=== PATIENT | female | born 1955 | race Caucasian/White ===

== ENCOUNTER 2023-09-11 17:42 | Emergency (ER) | payer OTHER, SELFPAY ==
[2023-09-11 17:44] VITALS: BP 150/91
[2023-09-11 18:13] VITALS: BP 117/74
[2023-09-11 18:23] LABS: % Basophils 0.3 % (0-2); % Eosinophils 1.7 % (0-6); % Immature Granulocytes 0.9 % (0-0.5); % Monocytes 7.8 % (1.7-9.3); % Neutrophils 63.3 % (42.2-75.2); Absolute Eosinophils 0.2 10^3/uL (0-0.7); Absolute Immature Granulocytes 0.1 10^3/uL (0-0.05); Absolute Lymphocytes 3.5 10^3/uL (1.2-3.4); Absolute Neutrophils 8.5 10^3/uL (1.4-6.5); Hemoglobin 12.2 g/dL (12.0-16.0); Mean Corp Hgb Conc. 33.9 g/dL (33.0-37.0); Mean Corpuscular Hgb 29.3 pg (27.0-31.0); Mean Corpuscular Volume 86.3 fL (81.0-99.0); Mean Platelet Volume 9.1 fL (7.4-10.4); Nucleated Red Blood Cells % 0 %; Platelet Count 315 10^3/uL (130-400); Red Blood Cell Count 4.17 10^6/uL (4.20-5.40); Red Cell Dist. Width 15.1 % (11.5-14.5); White Blood Cell Count 13.4 10^3/uL (4.8-10.8)
[2023-09-11 18:26] VITALS: BMI 36.6
--- NOTE | 2023-09-11 18:44 | ED.GENMED ---
History of Present Illness
General
Chief Complaint: Dehydration Symptoms
Source: patient
Exam Limitations: none
Time Seen by Provider: 09/11/23 18:16
History of Present Illness
History of Present Illness:
This is a 68 year old female that comes in with c/o dehydration. States that she is feeling dehydrated. State that she has been having issues for the pat 5 years and has been tested and seeing different doctors for some time. State that she has an
appointment with the GI specialist next week. State that she has had abd pain and that she has trouble drinking as this makes her nauseated. States that she is also not eating much. States that she has breathing problems and just finished steroids
today. States that she gets chest tightness, SOB, feels cold, has a headache and feels whoozy. States that all of this has been going on for 5 years and she right know is only here for Dehydration. Denies any fever, chest pain now, vomiting,
diarrhea, urinary burning.
Past History
Past History
ED Past Medical History: HTN, Hypercholesterolemia and Other (Colitis, ' breathing Issues', C-diff)
ED Past Surgical History: Appendectomy, Gynecological (D&C, ) and Urological (Bladder sling)
Social History
Tobacco: Former smoker
Alcohol: None
Personal:
Living: with family
Review of Systems
Review of Systems
All Other Systems: ROS reviewed and negative except as documented in HPI and ROS
Constitutional: Reports no symptoms; Denies fever or chills
Respiratory: Reports trouble breathing; Denies cough
Cardiac: Reports chest pain (occasionally gets chest tightness)
ABD/GI: Reports abdominal pain and nausea; Denies vomiting or diarrhea
: Reports no symptoms; Denies dysuria, frequency or urgency
Musculoskeletal: Reports no symptoms
Skin: Reports no symptoms
Neurological: Reports headache and other (Feels 'whoozy')
Psychiatric: Reports no symptoms
Phy Exam
General Physical Exam
General Presentation: no apparent distress
General age: appears stated age
General Skin: warm and dry
General Habitus: normal
General Mental: alert
General Hydration: dry mucous membranes
ENT Exam
ENT Exam: TM's normal, pharynx normal and neck supple
Eye Exam
Eye Exam: EOMI
Cardiovascular Exam
Cardiovascular Exam: regular rate/rhythm, no edema, no murmur and normal peripheral pulses
Pulmonary Exam
Pulmonary Exam: lungs clear, no respiratory distress, no rales, chest non tender, no crackles, no rhonchi, no wheezing and no cough
Gastrointestinal Exam
Gastrointestinal Exam: normal bowel sounds, non tender, soft, no organomegaly, no pulsatile mass and non distended
Musculoskeletal Exam
Musculoskeletal Exam: full ROM and no edema
Skin Exam
Skin Exam: normal color, warm/dry, no rash and no petechia
Psychiatric Exam
Psychiatric Exam: normal mood/affect
Course
Orders/Labs/Results
Orders:
Orders
09/11/23 18:18
Complete Blood Count/With Diff Urgent
Comprehensive Metabolic Panel Urgent
09/11/23 18:44
0.9% Sodium Chloride 1000 ml [Nss] 1,000 ml IV BOLUS
09/11/23 19:22
Urinalysis Urgent
Date Specimen was Collected: 09/11/23
Time Specimen was Collected: 19:21
Urine Microscopic Urgent
Date Specimen was Collected: 09/11/23
Time Specimen was Collected: 19:21
09/11/23 20:30
Ketorolac [Toradol] 30 mg .ROUTE .STK-MED ONE
Ondansetron Injectable [Zofran] 4 mg .ROUTE .STK-MED ONE
09/11/23 20:34
Ondansetron Injectable [Zofran] 4 mg IV NOW STA
09/11/23 20:35
Ketorolac [Toradol] 30 mg IV NOW STA
Abnormal Lab Results
09/11/23 09/11/23
18:18 19:22
WBC 13.4 H 10^3/uL
(4.8-10.8)
RBC 4.17 L 10^6/uL
(4.20-5.40)
Hct 36.0 L %
(37.0-47.0)
RDW 15.1 H %
(11.5-14.5)
Abs Immat Gran (auto) 0.1 H 10^3/uL
(0-0.05)
Absolute Neuts (auto) 8.5 H 10^3/uL
(1.4-6.5)
Absolute Lymphs (auto) 3.5 H 10^3/uL
(1.2-3.4)
Absolute Monos (auto) 1.0 H 10^3/uL
(0.1-0.6)
Immature Gran % 0.9 H %
(0-0.5)
BUN 24 H mg/dl
(7-17)
Alkaline Phosphatase 137 H U/L
(38-126)
Urine Nitrite Positive A
(Negative)
Ur Leukocyte Esterase 2+ A
(Negative)
Urine WBC 16-20 A /HPF
(0-5)
Urine Bacteria Moderate A
(Negative)
09/11/23 18:18
09/11/23 18:18
Leukocytosis (just finished steroid today), Dehydration. Alk phos elevation. Urine questionable for infection.
Vital Signs
Initial and Last Documented VS:
Initial Vital Signs
Temp Pulse Resp BP Pulse Ox
97.8 F 74 18 150/91 97
09/11/23 17:44 09/11/23 17:44 09/11/23 17:44 09/11/23 17:44 09/11/23 17:44
Last Documented Vital Signs
Temp Pulse Resp BP Pulse Ox
97.6 F 77 22 110/55 94
09/11/23 18:27 09/11/23 19:30 09/11/23 19:30 09/11/23 19:22 09/11/23 19:30
MDM/Problems Addressed
Differential Diagnosis Includes:
Dehydration, Nausea
MDM/Problems Addressed:
This is a 68 year old female that comes in with c/o feeling that she is dehydrated. States that this is the only reason she is here today as all of her other symptoms have been going on for the past 5 years. States that she see's all kind of doctors
and is seeing the GI specialist at [place] next week.
Will check patient labs and give IV fluids.
Back into see patient. Explained that her blood work shows dehydration and her urine is questionable for infection. However since patient states that she has urinary burning will start on antibiotic. Will discharge patient home.
Chronic conditions affecting care:
Chronic nausea.
Acute Exacerbation and/or Progression of Chronic Illness:
Nausea,
*Pulse Oximetry
Patient hypoxic: no
*EKG
Interpreted by ED Provider?: NA
Rate: EKG- N/A
*Critical Care Note
Total Time (30-74mins, 75-104mins- exclusive of procedures): Not Applicable
ED Attending Note
-
Portions of this chart may have been created with voice recognition software.� Occasional wrong word or��sound alike� substitutions may have occurred due to the inherent limitations of voice recognition software.
Discharge Plan
Departure
Patient Disposition: Home (Routine Discharge)
Date of Disposition: 09/11/23
Time of Disposition: 21:20
Patient with high blood pressure during this ER visit?: No
Condition: Good
Covid-19: Not Applicable
Discharge Problem:
Acute dehydration, Urinary tract infection
Instructions: Dehydration, Adult (DC), Urinary Tract Infection, Adult ED
Prescriptions:
New
cephalexin 500 mg capsule
500 mg PO BID 7 Days Qty: 13 0RF
Referrals:
Janet Moreno, DO [Family Provider] - Call in 1-3 days for appt
Activity Restrictions/Additional Instructions:
As discussed, your blood work shows that you are dehydrated. Please increase your water intake to 8-8oz glasses daily. Your urine is also questionable for infection. Since you have had urinary burning you have been started on an antibiotic and given
your first dose here. Your Prescription has been sent to the Pharmacy. Please follow up with the family doctor and keep your GI appointment next week as scheduled. IF YOU HAVE ANY OTHER CONCERNS PLEASE RETURN TO THE EMERGENCY ROOM.
Interventions
Interventions:
*Risk Screen - Suicide Last Done: 09/11/23 17:44
*General Assessment Last Done: 09/11/23 17:44
*Neglect/Abuse Screening Last Done: 09/11/23 17:44
ED- Fall Risk Assessment Last Done: 09/11/23 18:27
TF-Nokkyi-Vaeozyqfxo Assessment Last Done: 09/11/23 18:28
ED- Cardiac Assessment Last Done: 09/11/23 18:27
ED- Pulmonary Assessment Last Done: 09/11/23 18:27
Discharge Date and Time
Print Language: GREEK
[2023-09-11 18:50] LABS: ALT (SGPT) 29 U/L (0-35); AST (SGOT) 25 U/L (14-36); Albumin 4.2 g/dl (3.5-5.0); Alkaline Phosphatase 137 U/L (38-126); Blood Urea Nitrogen 24 mg/dl (7-17); Calcium 9.6 mg/dl (8.4-10.2); Carbon Dioxide 27 mmol/L (22-30); Chloride 103 mmol/L (98-107); Estimated Creatinine Clearance 85 ml/min; Glucose 87 mg/dl (70-99); Sodium 138 mmol/L (135-145); Total Bilirubin 0.5 mg/dl (0.2-1.3); Total Protein 6.9 g/dl (6.3-8.2); eGFR > 60.00
[2023-09-11] MEDS: NSS 1000 IV (19:13)
[2023-09-11 19:22] VITALS: BP 110/55
[2023-09-11 19:34] LABS: Urine Albumin Negative (Neg - Trace); Urine Bilirubin Negative (Negative); Urine Character Clear (Clear); Urine Color Yellow; Urine Glucose Negative (Negative); Urine Ketone Negative (Negative); Urine Leukocyte 2+ (Negative); Urine Nitrite Positive (Negative); Urine Occult Blood Negative (Negative); Urine Urobilinogen Negative (Neg - 1+)
[2023-09-11 19:42] LABS: Urine Squamous Cell >30 /LPF (Few)
[2023-09-11 19:44] LABS: Urine Bacteria Moderate (Negative); Urine Red Blood Cell 0-2 /HPF (0-2); Urine White Cell 16-20 /HPF (0-5)
[2023-09-11 20:00] VITALS: BP 129/74
[2023-09-11] MEDS: ZOFRAN 4 MG IV (20:36)
[2023-09-11] MEDS: TORADOL 30 MG IV (20:36)
[2023-09-11] MEDS: KEFLEX 500 MG PO (21:33)
[2023-09-11 21:35] VITALS: BP 132/72
== END 2023-09-11 21:50 | disposition home or self-care (01) ==
LOC: EMR 17:42
PROVIDERS: Clinical Nurse Specialist Family Health; Emergency Medicine; EMERGENCY PHYSICIAN Emergency Medicine; FAMILY PHYSICIAN Family Medicine
DX: R06.02 Shortness of breath (principal); R07.89 Other chest pain; R11.0 Nausea; R10.9 Unspecified abdominal pain; R42 Dizziness and giddiness; R51.9 Headache, unspecified; E86.0 Dehydration; N39.0 Urinary tract infection, site not specified; K52.9 Noninfective gastroenteritis and colitis, unspecified; I10 Essential (primary) hypertension; E78.00 Pure hypercholesterolemia, unspecified; Z87.891 Personal history of nicotine dependence
CPT/HCPCS: 99284; 96374; 96375; 96361; 80053; 81003; 81015; 85025